=== PATIENT | male | born 1975 | race Two or more races ===

== ENCOUNTER 2021-12-18 22:03 | Emergency (ER) | payer MEDICAID ==
[~2021-12-18] VITALS: Ht 175.3 cm; Wt 69.4 kg
[2021-12-19] MEDS ORDERED: ACETAMINOPHEN/CODEINE#3 (300/30mg) TAB PO ONE (01:00)
[2021-12-19 01:33] VITALS: BP 111/68
== END 2021-12-19 01:36 | disposition home or self-care (01) ==
LOC: ER 22:03
DX: M72.2 Plantar fascial fibromatosis (principal); F17.210 Nicotine dependence, cigarettes, uncomplicated; Z88.6 Allergy status to analgesic agent

== ENCOUNTER 2021-12-27 18:58 | Emergency (ER) | payer MEDICAID ==
[~2021-12-27] VITALS: Ht 170.2 cm; Wt 70.0 kg
[2021-12-27 19:42] VITALS: BP 127/75
[2021-12-27 20:38] LABS: Albumin 3.9 g/dL (3.4-5.0); Calcium 8.9 mg/dL (8.5-10.1); Magnesium 2.5 mg/dL (1.6-2.6); Potassium 4.2 mmol/L (3.5-5.1)
[2021-12-27 20:41] LABS: BUN/Creatinine Ratio 13.3; Basophils # (auto) 0.1 10 ^3/uL (0-0.2); Basophils % (auto) 0.9 % (0.0-2.0); Bilirubin, Total 0.3 mg/dL (0.2-1.0); Eosinophils # (auto) 0.5 10 ^3/uL (0-0.8); Eosinophils % (auto) 7.8 % (0.0-7.0); Hematocrit 44.7 % (41.0-53.0); Hemoglobin 15.6 g/dL (13.5-17.5); Lymphocytes # (auto) 2.7 10 ^3/uL (0.4-5.4); Lymphocytes % (auto) 39.4 % (10.0-50.0); Mean Corpuscular Hemoglobin 32.7 pg (28.0-32.0); Mean Corpuscular Hgb Conc. 34.9 g/dL (32.0-36.0); Mean Corpuscular Volume 93.7 fL (80.0-100.0); Monocytes # (auto) 0.6 10 ^3/uL (0-1.3); Monocytes % (auto) 8.7 % (0.0-12.0); Neutrophils % (auto) 43.2 % (37.0-80.0); Nucleated Red Blood Cells % 0.2 %; Red Blood Cells 4.77 10^6/uL (4.5-5.90); Red Cell Distribution Width 13.8 % (11.8-14.3); Total Protein 7.6 g/dL (6.4-8.2); White Blood Cell 6.9 10^3/uL (4.4-10.8)
[2021-12-27 20:50] LABS: INR 0.99 (0.9-1.15); Partial Thromboplastin Time 26.5 sec (24.6-33.4)
[2021-12-27] MEDS ORDERED: IBUP200C14 PO (20:58)
[2021-12-27] MEDS ORDERED: IBUPROFEN 800 MG TAB PO ONE (21:00)
[2021-12-28] MEDS ORDERED: ACET-1158 PO (09:30)
== END 2021-12-27 23:00 | disposition home or self-care (01) ==
LOC: EDBD 18:58 → EDSEX 18:58 → ER 18:59
DX: S93.402A Sprain of unspecified ligament of left ankle, initial encounter (principal); R07.89 Other chest pain; I48.91 Unspecified atrial fibrillation; F17.210 Nicotine dependence, cigarettes, uncomplicated; Z95.0 Presence of cardiac pacemaker; Z88.8 Allergy status to other drugs, medicaments and biological substances; X58.XXXA Exposure to other specified factors, initial encounter; Y93.89 Activity, other specified; Y92.89 Other specified places as the place of occurrence of the external cause; Y99.8 Other external cause status
CPT/HCPCS: 36415; 71045; 73610; 80053; 83735; 83880; 84484; 85025; 85610; 85730; 93005